=== PATIENT | female | born 1950 | race Two or more races ===

== ENCOUNTER 2019-12-20 17:52 | Inpatient (IN) | payer MEDICARE, OTHER ==
[~2019-12-20] VITALS: Ht 157.5 cm; Wt 76.9 kg
--- NOTE | 2019-12-20 17:55 | NUR ---
PT BIB SON C/O BILATERAL LEG PAIN AND GEN WEAKNESS. PT IS AAOX3, NOT IN RESPIRATORY DISTRESS, HOOKED TO OCCUPATIONAL THERAPIST ASSISTANTS, KEPT RESTED AND COMFORTABLE. WILL CONTINUE TO MONITOR.
[2019-12-20] MEDS ORDERED: IV NS 0.9% 500 ML BAG IV ONE ×2 (18:30→19:30)
--- NOTE | 2019-12-20 18:32 | NUR ---
SEEN AND EXAMINED BY .
--- NOTE | 2019-12-20 18:40 | NUR ---
IV LINE ESTABLISHED BLOOD DRAWN AND SENT TO LAB.
--- NOTE | 2019-12-20 18:51 | NUR ---
URINAL GIVEN BUT UNABLE TO PROVIDE URINE SPECIMEN THIS TIME.
[2019-12-20 18:52] LABS: BASOPHILS # (AUTO) 0.1 /CMM (0.0-0.2); BASOPHILS % (AUTO) 0.5 % (0.0-2.0); EOSINOPHILS % (AUTO) 0.1 % (0.0-6.0); HEMATOCRIT 41 % (33-45); HEMOGLOBIN 13.2 g/dL (11.5-14.8); LYMPHOCYTES # (AUTO) 0.4 /CMM (0.8-4.8); LYMPHOCYTES % (AUTO) 1.9 % (20.0-44.0); MEAN CORPUSCULAR HGB CONC 33 g/dl (31.0-36.0); MEAN CORPUSCULAR VOLUME 85 fL (82-100); MONOCYTES # (AUTO) 0.7 /CMM (0.1-1.30); MONOCYTES % (AUTO) 2.9 % (2.0-12.0); NEUTROPHILS # (AUTO) 21.6 /CMM (1.8-8.9); NEUTROPHILS % (AUTO) 94.6 % (43.0-81.0); PLATELET COUNT (AUTO) 210 /CMM (150-450); RED BLOOD CELL COUNT(AUTO) 4.75 MIL/uL (4.0-5.2); WHITE BLOOD COUNT (AUTO) 22.8 K/uL (4.3-11.0)
[2019-12-20 19:07] LABS: CALCIUM, SERUM 8.8 mg/dL (8.5-10.1); CARBON DIOXIDE 26 mmol/L (21-32); CHLORIDE 102 mmol/L (98-107); CREATININE 1.1 mg/dL (0.6-1.3); GLUCOSE 208 mg/dL (74-106); POTASSIUM 3.5 mmol/L (3.5-5.1); SODIUM SERUM 138 mmol/L (136-145); UREA NITROGEN, BLOOD 16 mg/dL (7-18)
[2019-12-20 19:13] LABS: ALANINE AMINOTRANSFERASE 28 U/L (12-78); ALBUMIN 3.4 g/dL (3.4-5.0); ALKALINE PHOSPHATASE 111 U/L (46-116); ASPARTATE AMINOTRANSFERASE 22 U/L (15-37); BILIRUBIN,DIRECT 0.2 mg/dL (0.0-0.2); TOTAL PROTEIN, SERUM 7.6 g/dL (6.4-8.2)
--- NOTE | 2019-12-20 19:17 | NUR ---
currently placed on bedpan for urine.
--- NOTE | 2019-12-20 19:22 | NUR ---
covid test collected and sent to lab.
[2019-12-20] MEDS ORDERED: PIPERACILLIN /TAZOBACTAM 3.375 G in IV D5W 50 ML IV ONE (19:30)
[2019-12-20] MEDS ORDERED: VANCOMYCIN HCL 1 GM in IV D5W 260 ML IV ONE (19:30)
--- NOTE | 2019-12-20 19:51 | NUR ---
urine collected and sent to the lab.
[2019-12-20] MEDS ORDERED: PIPERACILLIN /TAZOBACTAM 3.375 G VIAL IV ONE (19:52)
[2019-12-20 20:01] LABS: APPEARANCE,URINE CLEAR (CLEAR); BILIRUBIN,URINE NEGATIVE (NEGATIVE); BLOOD, URINE SMALL Ery/uL (NEGATIVE); COLOR,URINE YELLOW (YELLOW); KETONES,URINE NEGATIVE (NEGATIVE); LEUKOCYTE ESTERASE ,URINE NEGATIVE (NEGATIVE); NITRITE, URINE NEGATIVE (NEGATIVE); PROTEIN,URINE NEGATIVE (NEGATIVE); UGLUCOSE 250 MG/DL mg/dL (NEGATIVE); UROBILINOGEN,URINE 0.2 EU/dL (0.2)
--- NOTE | 2019-12-20 20:11 | NUR ---
notifed of 102.2 temp. ordered to give 1 gram of tylenol PO.
[2019-12-20] MEDS ORDERED: VANCOMYCIN 1 GM VIAL ONE (20:12)
[2019-12-20] MEDS ORDERED: ACETAMINOPHEN ES 500 MG TABLET ONE (20:13)
--- NOTE | 2019-12-20 20:18 | NUR ---
COVID RESULT: NEGATIVE
--- NOTE | 2019-12-20 20:20 | NUR ---
patient medicated as ordered
[2019-12-20] MEDS ORDERED: ACETAMINOPHEN 325 MG TABLET PO ONE (20:30)
--- NOTE | 2019-12-20 20:52 | NUR ---
TELE 308-2
--- NOTE | 2019-12-20 21:11 | NUR ---
report given to Sintia AMIN for alphonso.
[2019-12-20] MEDS ORDERED: MAG HYDROX/AL HYDROX/SIMETH 30 ML UDC PO PRN (21:30)
[2019-12-20] MEDS ORDERED: Z GUARD REMEDY 2 OZ OINT TP PRN (21:30)
[2019-12-20] MEDS ORDERED: MAGNESIUM HYDROXIDE 30 ML UDC PO PRN (21:30)
[2019-12-20] MEDS ORDERED: ACETAMINOPHEN 325 MG TABLET PO PRN (21:30)
[2019-12-20] MEDS ORDERED: DEXTROSE 50%-WATER 50 ML DISP.SYRIN IV PRN (21:30)
[2019-12-20] MEDS ORDERED: ONDANSETRON HCL/PF 4 MG/2 ML VIAL IVP PRN (21:30)
--- NOTE | 2019-12-20 21:55 | NUR ---
TAKEN UP TO ASSIGNED ROOM FOR ARTUR.
[2019-12-20 22:00] VITALS: BP 116/58
[2019-12-20 22:18] LABS: C-REACTIVE PROTEIN 5.6 mg/dL (0.0-0.9)
[2019-12-20] MEDS: INSULIN REGULAR, HUMAN 100 UNIT/ML 3 ML VIAL SQ PRN (22:29)
[2019-12-20] MEDS: BLOOD SUGAR DIAGNOSTIC 1 EACH STRIP IN SCH (22:29)
--- NOTE | 2019-12-20 22:30 | NUR ---
RECEIVE PT FROM [facility] AT 2200 VIA [facility] PT A/O X 3 HEAD TO TOE ASSESSMENT IS DONE WOUND CARE CONSULT INITIATED, PHOTO WAS DONE ATTACH TO CHART. PT KEPT CLEAN, DRY AND COMFORTABLE TOLERATING ROOM AIR, DENIES PAIN AND NOT IN DISTRESS FEBRILE AT THIS TIME COOLING MEASURES PROVIDED. CONT TO MONITOR
--- NOTE | 2019-12-20 22:30 | NUR ---
PATIENT REFUSED SLIDING SCALE R 167 mg/dl BLOOD SUGAR DESPITE EXPLAINING RISKS AND BENEFITS OFFERED 3 TIMES PT REFUSED
[2019-12-21] VITALS: BP 143/87
--- NOTE | 2019-12-21 | NUR ---
temp now at 99.5
[2019-12-21] MEDS: IV NS 0.9% 1,000 ML IV SCH ×2 (02:15→14:58)
--- NOTE | 2019-12-21 03:20 | NUR ---
PER PATRICK NICOLAS RELAYED REFCENTLACTID ACID NO NEED FOR BOLUS
--- NOTE | 2019-12-21 03:22 | NUR ---
Paged and relayed Vte score of 3, per wilstein order lovenox 40 mg sq daily to start at 0900 today 12/21/2019 read back and verified orders noted and carried out
[2019-12-21 04:00] VITALS: BP 151/83
[2019-12-21 06:39] LABS: BASOPHILS # (AUTO) 0.1 /CMM (0.0-0.2); BASOPHILS % (AUTO) 0.3 % (0.0-2.0); EOSINOPHILS % (AUTO) 0.1 % (0.0-6.0); HEMATOCRIT 41 % (33-45); HEMOGLOBIN 13.3 g/dL (11.5-14.8); LYMPHOCYTES # (AUTO) 0.7 /CMM (0.8-4.8); LYMPHOCYTES % (AUTO) 4.2 % (20.0-44.0); MEAN CORPUSCULAR HGB CONC 33 g/dl (31.0-36.0); MEAN CORPUSCULAR VOLUME 86 fL (82-100); MONOCYTES # (AUTO) 0.5 /CMM (0.1-1.30); MONOCYTES % (AUTO) 3.3 % (2.0-12.0); NEUTROPHILS # (AUTO) 14.3 /CMM (1.8-8.9); NEUTROPHILS % (AUTO) 92.1 % (43.0-81.0); PLATELET COUNT (AUTO) 185 /CMM (150-450); RED BLOOD CELL COUNT(AUTO) 4.77 MIL/uL (4.0-5.2); WHITE BLOOD COUNT (AUTO) 15.6 K/uL (4.3-11.0)
--- NOTE | 2019-12-21 06:47 | NUR ---
ON CALL PHARMACY TECHNICIAN ASLEEP AND EASILY AWAKEN, SR 77 ON TRANSCRIBING OPERATOR HEAD. VS STABLE, AFEBRILE, ALL NEEDS ATTENDED AND ANTICIPATED, KEPT CLEAN, DRY AND COMFORTABLE. AM CARE RENDERED, SAFETY MEASURES AT ALL TIMES. WILL ENDORSE TO NEXT SHIFT.
[2019-12-21] MEDS: BLOOD SUGAR DIAGNOSTIC 1 EACH STRIP IN SCH ×4 (06:59→22:06)
[2019-12-21] MEDS: INSULIN REGULAR, HUMAN 100 UNIT/ML 3 ML VIAL SQ PRN ×3 (06:59→17:55)
[2019-12-21 07:00] LABS: CALCIUM, SERUM 8.3 mg/dL (8.5-10.1); CREATININE 0.8 mg/dL (0.6-1.3); MAGNESIUM 1.9 mg/dL (1.8-2.4); PHOSPHORUS 2.5 mg/dL (2.5-4.9); POTASSIUM 3.2 mmol/L (3.5-5.1)
[2019-12-21 07:09] LABS: THYROID STIMULATING HORMONE 1.621 uIU/mL (0.358-3.74)
--- NOTE | 2019-12-21 07:30 | NUR ---
VOCATIONAL COUNSELOR NOTES RECEIVED PATIENT IN BED ALERT AND AWAKE ORIENTED X3. HOB ELEVATED. NO SOB NOTED. ON TELEMONITORING SR: 79. DENIES ANY C/O PAIN NOR DISCOMFORT AT THIS TIME. LEFT AC # 18 INFUSING NS AT 75ML/HR DIONE WELL. NOTED BLE WITH SKIN DISCOLORATION, ELEVATED WITH PILLOW. BED IN LOWEST POSITION, LOCKED. BED ALARM ON. CALL LIGHT WITHIN REACH. ABLE OT VERBALIZE NEEDS.
[2019-12-21] MEDS: PANTOPRAZOLE 40 MG TABLET.DR PO SCH (07:36)
[2019-12-21 08:00] VITALS: BP_SYST 124; BP_SYST 127; BP_DIAS 60; BP_DIAS 62
[2019-12-21] MEDS: ENOXAPARIN SODIUM 40 MG/0.4 ML DISP.SYRIN SQ SCH (08:10)
[2019-12-21] MEDS: POTASSIUM CHLORIDE 20 MEQ TAB.PRT.SR PO SCH ×2 (11:09→12:18)
[2019-12-21] MEDS: VANCOMYCIN 1 GM in IV D5W 250ml IV SCH (14:58)
[2019-12-21] MEDS: PIPERACILLIN /TAZOBACTAM 3.375 G in IV D5W 50 ML IV SCH ×2 (14:58→20:13)
[2019-12-21 16:00] VITALS: BP 124/62
--- NOTE | 2019-12-21 18:55 | NUR ---
MS RN NOTES PATIENT RESTING COMFORTABLY IN BED WATCHING TV. HOB ELEVATED. NO S/S OF RESPIRATORY DISTRESS. DENIES ANY C/O PAIN NOR DISCOMFORT DURING THE SHIFT. LEFT AC # 18 INFUSING NS AT 75ML/HR DIONE WELL. STILL NOTED BLE WITH SKIN DISCOLORATION. PATIENT AMBULATORY WITH STEADY GAIT. BED IN LOWEST POSITION, LOCKED. BED ALARM ON. CALL LIGHT WITHIN REACH. ABLE OT VERBALIZE NEEDS. IN NO APPARENT DISTRESS.
[2019-12-21 20:00] VITALS: BP 135/59
--- NOTE | 2019-12-21 20:00 | NUR ---
MS/RN OPENING NOTES RECEIVED PATIENT IN BED, AWAKE, ALERT X3, RESPIRATIONS EVEN AND UNLABORED, IN ROOM AIR, DENIES PAIN. CAN AMBULATE TO THE BATHROOM , WITH BLE DISCOLORATION. PATIENT SKIN WARM TO TOUCH, IV SITE ON LEFT AC PATENT, TO MONITOR. BED LOCKED, CALL LIGHTS WITHIN REACH. WILL MONITOR, RECEIVED ENDORSEMENT FROM AM RN FOR ARTUR.
[2019-12-22] MEDS: PIPERACILLIN /TAZOBACTAM 3.375 G in IV D5W 50 ML IV SCH ×3 (00:14→12:13)
[2019-12-22] MEDS: VANCOMYCIN 1 GM in IV D5W 250ml IV SCH ×2 (02:12→15:39)
[2019-12-22] MEDS: IV NS 0.9% 1,000 ML IV SCH (03:21)
[2019-12-22] MEDS: BLOOD SUGAR DIAGNOSTIC 1 EACH STRIP IN SCH ×4 (05:53→22:25)
--- NOTE | 2019-12-22 06:16 | NUR ---
308-2 MS/RN NOTES PATIENT ABLE TO SLEEP DURING THE NIGHT, ALWRT AND COMPLIANT TO CARE. ATTENDED ALL NEEDS, KEPT COMFORTABLE, BED LOCKED, CALL LIGHTS WITHIN REACHED, MONITORED FOR ANY CHANGES, IV INFUSION WITH NO S/S OF ADVERSE REACTION,WILL ENDORSE TO AM RN FOR ARTUR.
[2019-12-22 06:34] LABS: BASOPHILS % (AUTO) 0.6 % (0.0-2.0); EOSINOPHILS % (AUTO) 2.3 % (0.0-6.0); HEMATOCRIT 38 % (33-45); HEMOGLOBIN 12.4 g/dL (11.5-14.8); LYMPHOCYTES # (AUTO) 1.2 /CMM (0.8-4.8); LYMPHOCYTES % (AUTO) 13.9 % (20.0-44.0); MEAN CORPUSCULAR HGB CONC 33 g/dl (31.0-36.0); MEAN CORPUSCULAR VOLUME 85 fL (82-100); MONOCYTES # (AUTO) 0.6 /CMM (0.1-1.30); MONOCYTES % (AUTO) 7.3 % (2.0-12.0); NEUTROPHILS # (AUTO) 6.5 /CMM (1.8-8.9); NEUTROPHILS % (AUTO) 75.9 % (43.0-81.0); PLATELET COUNT (AUTO) 162 /CMM (150-450); RED BLOOD CELL COUNT(AUTO) 4.44 MIL/uL (4.0-5.2); WHITE BLOOD COUNT (AUTO) 8.5 K/uL (4.3-11.0)
--- NOTE | 2019-12-22 07:20 | NUR ---
MS RN NOTES RECEIVED PATIENT IN BED ALERT AND AWAKE ORIENTED X4. HOB ELEVATED. NO SO. DENIES ANY C/O PAIN NOR DISCOMFORT AT THIS TIME. RIGHT AC # 22 INFUSING NS AT 75ML/HR DIONE WELL.BED IN LOWEST POSITION, LOCKED. BED ALARM ON. CALL LIGHT WITHIN REACH. ABLE OT VERBALIZE NEEDS.
[2019-12-22 07:22] LABS: CALCIUM, SERUM 8.6 mg/dL (8.5-10.1); CREATININE 0.9 mg/dL (0.6-1.3); POTASSIUM 3.7 mmol/L (3.5-5.1)
[2019-12-22] MEDS: PANTOPRAZOLE 40 MG TABLET.DR PO SCH (07:27)
[2019-12-22 08:00] VITALS: BP 130/88
[2019-12-22] MEDS: ENOXAPARIN SODIUM 40 MG/0.4 ML DISP.SYRIN SQ SCH (08:09)
--- NOTE | 2019-12-22 11:41 | NUR ---
WOUND CARE CONSULT: PT PRESENTS WITH SCALY, REDDENED LOWER LEGS AND THICKENED SCALY AREAS TO FEET AND ANKLES, PRESENT ON ADMISSION. RECOMMEND DPM CONSULT. DR ASHER NOTIFIED OF CONSULT REQUEST. PT DENIED NEED FOR SKIN ASSESSMENT ON ANY OTHER AREAS OF BODY. WILL SEE PRN. IN AGREEMENT WITH PLAN OF CARE.
[2019-12-22] MEDS: INSULIN REGULAR, HUMAN 100 UNIT/ML 3 ML VIAL SQ PRN ×3 (12:03→22:25)
--- NOTE | 2019-12-22 12:11 | NUR ---
MS RN NOTES PATIENT SEEN AND EXAMINED BY DR. HARDING PODIATRY WOUND.
--- NOTE | 2019-12-22 15:01 | NUR ---
MS RN NOTES CALLED LAB DUE TO VANCO TROUGH LEVEL STILL PENDING PER LAB MACHINE IS NOT WORKING AT THIS TIME, PHARMACY MADE AWARE AND WILL FOLLOW UP AGAIN.
--- NOTE | 2019-12-22 15:34 | NUR ---
MS RN NOTES RECEIVED VANCO TROUGH LEVEL RESULT 15, RELAYED TO PHARMACY, OK TO GIVE.
[2019-12-22 16:00] VITALS: BP 117/57
[2019-12-22] MEDS: UREA 10% -AHA 4% CREAM 57 GM TUBE TP SCH (16:59)
[2019-12-22] MEDS ORDERED: UREA LOTION 10% 177 ML BOTTLE TP SCH (17:00)
--- NOTE | 2019-12-22 19:26 | NUR ---
MS RN NOTES PATIENT RESTING COMFORTABLY IN BED. HOB ELEVATED. NO S/S OF RESPIRATORY DISTRESS. DENIES ANY C/O PAIN NOR DISCOMFORT AT THIS TIME. RIGHT AC # 22 INFUSING NS AT 75ML/HR DIONE WELL. RIGHT HAND SL # 222 INTACT AND PATENT.BED IN LOWEST POSITION, LOCKED. BED ALARM ON. CALL LIGHT WITHIN REACH.IN NO APPARENT NOTES R
--- NOTE | 2019-12-22 19:42 | NUR ---
MS RN OPENING NOTE: Patient in bed awake, alert, and oriented x4. Patient able to make needs known. Patient breathing well on room air. No SOB or acute respiratory distress. Breathing unlabored and equal. Noted IV access 22 gauge on right hand, dressing intact, patent, no redness or infiltration. Also noted IV access on right AC, dressing dry and intact, patent, no redness, or infiltration. Safety precaution is in place, bed is in the lowest level, brakes are locked, side rails x2 are up, and call light is within reach. Will continue to monitor.
[2019-12-22 20:00] VITALS: BP 144/60
[2019-12-22] MEDS ORDERED: PIPERACILLIN /TAZOBACTAM 3.375 G in IV D5W 100 ML IV SCH (21:00)
[2019-12-22] MEDS: CEFEPIME 2 GM in IV D5W 100 ML IV SCH (21:28)
--- NOTE | 2019-12-22 22:26 | NUR ---
MS RN NOTE: Patient glucose 98. Hold insulin per sliding scale. Will continue to monitor.
[2019-12-23] MEDS: VANCOMYCIN 1 GM in IV D5W 250ml IV SCH ×2 (01:58→13:53)
[2019-12-23] MEDS: INSULIN REGULAR, HUMAN 100 UNIT/ML 3 ML VIAL SQ PRN (06:43)
--- NOTE | 2019-12-23 06:44 | NUR ---
MS RN NOTE: Patient glucose 95. Hold insulin per sliding scale. Will continue to monitor.
--- NOTE | 2019-12-23 06:48 | NUR ---
MS RN CLOSING NOTE: Patient in bed awake and alert. Patient breathing well on room air. No SOB or acute respiratory distress noted. Safety precaution in place, bed is in the lowest level, bed is locked, side rails x2 are up, and call light is within reach. Will endorse to next shift.
[2019-12-23] MEDS: BLOOD SUGAR DIAGNOSTIC 1 EACH STRIP IN SCH ×4 (06:53→22:20)
--- NOTE | 2019-12-23 07:30 | NUR ---
RN MS NOTES PT IN BED, AWAKE, ALERT AND ORIENTED, ABLE TO AMBULATE TO THE BATHROOM WITH STEADY GAIT, NO COMPLAINT OF PAIN, BREATHING PATTERN NORMAL, CALL LIGHT WITHIN REACH, KEPT COMFORTABLE, NEEDS ATTENDED.
[2019-12-23 07:47] LABS: CREATININE 0.9 mg/dL (0.6-1.3); POTASSIUM 3.6 mmol/L (3.5-5.1)
[2019-12-23 08:00] VITALS: BP 130/71
[2019-12-23] MEDS: PANTOPRAZOLE 40 MG TABLET.DR PO SCH (10:20)
[2019-12-23] MEDS: ENOXAPARIN SODIUM 40 MG/0.4 ML DISP.SYRIN SQ SCH (10:22)
[2019-12-23] MEDS: UREA 10% -AHA 4% CREAM 57 GM TUBE TP SCH ×2 (10:39→16:38)
--- NOTE | 2019-12-23 14:16 | NUR ---
RN MS NOTES PT IN BED, RESTING, NO COMPLAINT OF PAIN OR ANY DISCOMFORT, AMBULATES TO THE BATHROOM, DUE MEDS GIVEN ORDERED, SEEN BY DR. SINGH.
[2019-12-23] MEDS ORDERED: KEY,NONCONTROL,TO KEEP IN PYXI 1 EA MC ONE (15:02)
[2019-12-23 16:00] VITALS: BP 140/62
--- NOTE | 2019-12-23 18:32 | NUR ---
MS END OF SHIFT NOTES PATIENT IN BED AOX4. ON RA, NO SOB, NO C/O PAIN. NO ACUTE RESPIRATORY DISTRESS NOTED. SAFETY PRECAUTIONS IN PLACE, BED AT LOWEST POSITION AND LOCKED WITH SIDE RAILS UP X 2, CALL LIGHT WITH IN REACH..
--- NOTE | 2019-12-23 19:34 | NUR ---
ms rn opening note received patient in bed. a/ox4, Greek speaking. tolerating room air. respirations are even and unlabored. no s/s sob noted. no s/s pain at this time. in no apparent distress. iv access in RAC#22 patent and saline locked. bed is low and locked, hob elevated in semi fowlers, side rails upx2, call light within reach. will continue to monitor.
[2019-12-23 20:00] VITALS: BP 146/53
[2019-12-23] MEDS: CEFEPIME 2 GM in IV D5W 100 ML IV SCH (20:32)
[2019-12-24] MEDS: VANCOMYCIN 0.75 GM in IV D5W 250 ML IV SCH ×2 (02:01→13:51)
[2019-12-24] MEDS: BLOOD SUGAR DIAGNOSTIC 1 EACH STRIP IN SCH ×3 (06:01→17:59)
--- NOTE | 2019-12-24 06:33 | NUR ---
ms rn closing note patient resting in bed. a/ox4, able to make needs known. remains tolerating room air. respirations remain are even and unlabored. no resp distress. no c.o of pain. no distress noted. iv access maintained in RAC#[id number] patent and saline locked. bed remains low and locked, hob elevated in semi fowlers, side rails upx2, call light within reach. will endorse to next shift.
[2019-12-24 07:48] LABS: CREATININE 0.9 mg/dL (0.6-1.3)
[2019-12-24 08:00] VITALS: BP 149/74
[2019-12-24] MEDS: PANTOPRAZOLE 40 MG TABLET.DR PO SCH (08:14)
[2019-12-24] MEDS: ENOXAPARIN SODIUM 40 MG/0.4 ML DISP.SYRIN SQ SCH (08:15)
[2019-12-24] MEDS: UREA 10% -AHA 4% CREAM 57 GM TUBE TP SCH ×2 (08:17→17:23)
--- NOTE | 2019-12-24 08:53 | NUR ---
MS OPENING SHIFT NOTES RECEIVED PATIENT IN BED, AWAKE, ALERT AND ORIENTED X4, BREATHING PATTERN NORMAL, NO COMPLAINTS OF PAIN, CALL LIGHT WITHIN REACH, BED AT LOWEST POSITION AND LOCKED.
[2019-12-24 09:26] LABS: POTASSIUM 3.5 mmol/L (3.5-5.1)
[2019-12-24 09:27] LABS: CALCIUM, SERUM 8.9 mg/dL (8.5-10.1)
[2019-12-24] MEDS ORDERED: UREA57CR TP (10:57)
[2019-12-24] MEDS ORDERED: CIPR-262 PO (10:57)
[2019-12-24] MEDS ORDERED: PANT40TA2 PO (10:57)
[2019-12-24] MEDS ORDERED: SULF1TAB48 PO (10:57)
--- NOTE | 2019-12-24 11:40 | NUR ---
RN MS NOTES PT IN BED, AWAKE, NOT IN PAIN OR DISTRESS, PT SEEN BY DR. SINGH, DISCHARGE ORDER GIVEN, PT AND PT'S SON MANUEL INFORMED OF DISCHARGE PLAN.
[2019-12-24 16:00] VITALS: BP 139/73
--- NOTE | 2019-12-24 18:04 | NUR ---
MS End Shift Note PT IN BED, AWAKE, ALERT AND ORIENTED, NO COMPLAINT OF PAIN OR ANY DISCOMFORT,RESPIRATIONS NORMAL, ON ROOM AIR, PT ABLE TO AMBULATE DISCHARGE ORDER GIVEN BY Bijal Rodriguez ENVIRONMENTAL PROJECT MANAGER, DISCHARGE AND MEDICATION INSTRUCTIONS PROVIDED TO PT, VERBALIZED UNDERSTANDING, BELONGINGS ACCOUNTED FOR, SKIN CHECK AND PHOTOS DONE. PATIENT AWAITING SON FOR SUBASSEMBLY SUPERVISOR.
--- NOTE | 2019-12-24 18:45 | NUR ---
RN MS NOTES ASSISTED PT TO HOSPITAL LOBBY VIA WHEELCHAIR, NEW PRESCRIPTIONS GIVEN TO PT, PICKED UP BY SON, LEFT VIA PRIVATE CAR IN STABLE CONDITION.
== END 2019-12-24 18:45 | disposition home health service (06) | DRG 872 ==
LOC: ER 17:58 → TELE 21:03 → MED 12-21 09:00
PROVIDERS: ADMIT Registered Nurse; ATTEND Nurse Practitioner Acute Care
DX: A41.9 Sepsis, unspecified organism (principal); L03.115 Cellulitis of right lower limb; E87.2 Acidosis; R65.20 Severe sepsis without septic shock; Z68.31 Body mass index [BMI] 31.0-31.9, adult; E66.9 Obesity, unspecified; E87.6 Hypokalemia; I87.2 Venous insufficiency (chronic) (peripheral); I50.9 Heart failure, unspecified; E11.9 Type 2 diabetes mellitus without complications; L85.3 Xerosis cutis
CPT/HCPCS: 36415; 71045-TC; 80048-TC; 80061-TC; 80076-TC; 80202-TC; 81000-TC; 82550-TC; 82728-TC; 82962-TC; 83605-TC; 83615-TC; 83735-TC; 84100-TC; 84443-TC; 84484-TC; 85025-TC; 85378-TC; 86140-TC; 87040-TC; 87081-TC; 87086-TC; 93307-TC; 93971-TC; 97116-TC; 97530-TC; C9803-CS; G0378; J0692; J1650; J1815; J2543; J3370; J7030; J7040; J7050; J7060

== ENCOUNTER 2020-09-30 23:59 | Emergency (ER) | payer MEDICARE, OTHER ==
[~2020-09-30] VITALS: Ht 157.5 cm; Wt 77.1 kg
[~2020-09-30 23:59] MED LIST: CIPR-262 PO; PANT40TA2 PO; SULF1TAB48 PO; UREA57CR TP
--- NOTE | 2020-10-01 00:09 | NUR ---
PATIENT [id number] FROM HOME C/O BILAT LEG WEAKNESS, AMBULATORY AT BASELINE, STATES LEGS "GAVE OUT" WHILE WALKING TO BATHROOM. PATIENT IS A/OX 4, RR EVEN AND LABORED, NO SIGNS OF SOB NOTED. PATIENT NERUO CHECK DONE. PATIENT CONNCETED TO ENGAGEMENT MGR AND POX. WILL CONTIUNE TO MONITOR.
[2020-10-01] MEDS ORDERED: ONDANSETRON HCL/PF 4 MG/2 ML VIAL ONE (00:26)
[2020-10-01 00:27] LABS: BASOPHILS # (AUTO) 0.1 K/uL (0.0-0.2); BASOPHILS % (AUTO) 0.5 % (0.0-2.0); EOSINOPHILS % (AUTO) 0.1 % (0.0-6.0); HEMATOCRIT 42 % (33-45); HEMOGLOBIN 13.7 g/dL (11.5-14.8); LYMPHOCYTES # (AUTO) 0.6 K/uL (0.8-4.8); LYMPHOCYTES % (AUTO) 4.6 % (20.0-44.0); MEAN CORPUSCULAR HGB CONC 33 g/dl (31.0-36.0); MEAN CORPUSCULAR VOLUME 86 fL (82-100); MONOCYTES # (AUTO) 0.4 K/uL (0.1-1.30); MONOCYTES % (AUTO) 3.2 % (2.0-12.0); NEUTROPHILS # (AUTO) 11.9 K/uL (1.8-8.9); NEUTROPHILS % (AUTO) 91.6 % (43.0-81.0); PLATELET COUNT (AUTO) 212 K/uL (150-450); RED BLOOD CELL COUNT(AUTO) 4.83 MIL/uL (4.0-5.2); WHITE BLOOD COUNT (AUTO) 13.1 K/uL (4.3-11.0)
[2020-10-01] MEDS: ONDANSETRON HCL/PF 4 MG/2 ML VIAL IVP ONE (00:28)
[2020-10-01] MEDS: IV NS 0.9% 1,000 ML BAG IV ONE (00:28)
--- NOTE | 2020-10-01 00:34 | NUR ---
MANUEL, SON: [phone]
--- NOTE | 2020-10-01 00:37 | NUR ---
X RAY AT BEDSIDE
[2020-10-01 00:39] LABS: ALANINE AMINOTRANSFERASE 23 U/L (12-78); ALBUMIN 3.6 g/dL (3.4-5.0); ALKALINE PHOSPHATASE 119 U/L (46-116); ASPARTATE AMINOTRANSFERASE 18 U/L (15-37); BILIRUBIN,DIRECT 0.2 mg/dL (0.0-0.2); BILIRUBIN,TOTAL 0.8 mg/dL (0.2-1.0); CALCIUM, SERUM 8.6 mg/dL (8.5-10.1); CARBON DIOXIDE 25 mmol/L (21-32); CHLORIDE 102 mmol/L (98-107); GLUCOSE 153 mg/dL (74-106); POTASSIUM 3.8 mmol/L (3.5-5.1); SODIUM SERUM 137 mmol/L (136-145); TOTAL PROTEIN, SERUM 7.9 g/dL (6.4-8.2); UREA NITROGEN, BLOOD 14 mg/dL (7-18)
--- NOTE | 2020-10-01 01:45 | NUR ---
PATIENT OZIEL JACKSON CALLED, HE WILL BE PICKING PATIENT UP.
[2020-10-01 01:50] VITALS: BP 144/67
--- NOTE | 2020-10-01 02:07 | NUR ---
Mario espinoza in ED - 10/01/20 at 0207 by AMOS Patient discharged to home in stable condition. Written and verbal after care instructions given. Patient verbalizes understanding of instruction.
--- NOTE | 2020-10-01 02:08 | NUR ---
Patient discharged to home in stable condition. Written and verbal after care instructions given. Patient verbalizes understanding of instruction.
== END 2020-10-01 02:08 | disposition home or self-care (01) ==
LOC: ER 10-01
DX: R55 Syncope and collapse (principal); E78.5 Hyperlipidemia, unspecified
CPT/HCPCS: 36415; 71045; 80048; 80076; 84484; 85025; 93005; 96361; 96374; 99285; J2405; J7030